=== PATIENT | female | born 1990 | race American Indian/Alaskan Native ===

== ENCOUNTER 2016-12-11 15:15 | Inpatient (IN) | payer MEDICAID ==
[2016-12-11] MEDS ORDERED: LACTATED RINGERS 1,000 ML ONE (16:34)
[2016-12-11] MEDS: LACTATED RINGERS 1,000 ML IV SCH ×2 (16:45→18:05)
[2016-12-11] MEDS ORDERED: BRETHINE IVP PRN (17:06)
[2016-12-11] MEDS ORDERED: BICITRA PO SCH (17:06)
[2016-12-11] MEDS ORDERED: ZOFRAN IV PRN ×2 (17:06→20:20)
[2016-12-11] MEDS ORDERED: MINERAL OIL PO PRN (17:06)
[2016-12-11] MEDS ORDERED: SUBLIMAZE IV PRN (17:06)
[2016-12-11 17:17] LABS: Hematocrit 35.9 % (30.3-42.9); Hemoglobin 11.5 gm/dl (10.1-14.3); Mean Corpuscular HGB Conc 32 % (30-34); Mean Corpuscular Hemoglobin 29 pg (28-32); Mean Corpuscular Volume 92 fl (79-97); Platelet Count 223 K/mm3 (140-440); Red Blood Count 3.92 M/mm3 (3.65-5.03); Red Cell Distribution Width 13.7 % (13.2-15.2); White Blood Count 10.2 K/mm3 (4.5-11.0)
[2016-12-11] MEDS ORDERED: BRETHINE SUB-Q PRN (17:18)
[2016-12-11] MEDS ORDERED: ePHEDrine SULFATE IV PRN ×2 (17:19→19:03)
[2016-12-11] MEDS ORDERED: LACTATED RINGERS 1,000 ML IV NR (18:00)
[2016-12-11] MEDS ORDERED: ANCEF/STERILE WATER 2 GM/20 ML 2 GM/20 ML SYRINGE IV NR (18:00)
[2016-12-11] MEDS ORDERED: PITOCin/NS 20 UNIT/1000ML DRIP 20,000 MILLIUNITS/1,000 ML BAG IV SCH (18:00)
[2016-12-11] MEDS ORDERED: REGLAN IV ONE (18:00)
[2016-12-11] MEDS ORDERED: PEPCID IV SCH (18:00)
[2016-12-11] MEDS ORDERED: ePHEDrine SULFATE ONE (18:21)
[2016-12-11] MEDS ORDERED: XYLOCAINE MPF 2% ONE (18:52)
--- NOTE | 2016-12-11 19:03 | Anesthesia Consultation ---
Anesthesia Consult and Med Hx Date of service: 12/11/16 - Airway Anesthetic Teeth Evaluation: Good ROM Head & Neck: Adequate Mental/Hyoid Distance: Adequate Mallampati Class: Class II Intubation Access Assessment: Probably Good - Pulmonary Exam CTA: Yes - Cardiac Exam Cardiac Exam: RRR - Pre-Operative Health Status ASA Pre-Surgery Classification: ASA2, Emergency Proposed Anesthetic Plan: Epidural, Spinal - Pre-Anesthesia Comment Pre-Anesthesia Comments: - Pulmonary Hx Asthma: No COPD: No Hx Pneumonia: No - Cardiovascular System Hx Hypertension: No - Central Nervous System Hx Seizures: No Hx Psychiatric Problems: No - Endocrine Hx Renal Disease: No Hx End Stage Renal Disease: No Hx Hypothyroidism: No Hx Hyperthyroidism: No - Hematic Hx Anemia: Yes Hx Sickle Cell Disease: No - Other Systems Hx Alcohol Use: Yes (red wine- 1 a month)
[2016-12-11] MEDS ORDERED: NARCAN 2 MG/2 ML IV PRN (19:07)
--- NOTE | 2016-12-11 19:11 | History and Physical Report ---
History of Present Illness Date of examination: 12/11/16 Date of admission: 12/11/16 17:01 Chief complaint: Labor History of present illness: Pt is a 26yo BF EDC 12/20/16 EGA 38 5/7 weeks presents to L&D complaining of RUC's q 3-4 mins. She received care at [facility] since 17 weeks and course complicated by previous C Section for Twins. She desires a . records are available and GBS is negative. Past History Past Medical History: no pertinent history Past Surgical History: section [employer]ANT History: abnormal PAP smear, chlamydia, herpes Family/Genetic History: diabetes, hypertension, cancer Social history: no significant social history, single - Obstetrical History Expected Date of Delivery: 12/20/16 Actual Gestation: 38 Week(s) 5 Day(s) : 5 Medications and Allergies Allergies Allergy/AdvReac Type Severity Reaction Status Date / Time No Known Allergies Allergy Verified 07/02/15 02:08 Home Medications Medication Instructions Recorded Confirmed Last Taken Type Ferrous Sulfate [Feosol 325 MG tab] 325 mg PO TID #90 tablet 07/02/15 Unknown Rx Ibuprofen [Motrin 800 MG tab] 800 mg PO Q8HR PRN #90 tablet 07/02/15 Unknown Rx oxyCODONE /ACETAMINOPHEN [Percocet 1 tab PO Q6HR PRN #30 tablet 07/02/15 Unknown Rx 5/325 mg] Active Meds: Active Medications Citric Acid/Sodium Citrate (Bicitra) 30 ml PO ONCE GINGER Stop: 12/12/16 17:05 Ephedrine Sulfate (Ephedrine Sulfate) 10 mg IV Q2M PRN PRN Reason: Hypotension Stop: 12/11/16 19:08 Famotidine (Pepcid) 20 mg IV ONCE GINGER Stop: 12/12/16 17:59 Fentanyl (Sublimaze) 100 mcg IV Q2H PRN PRN Reason: Labor Pain Last Admin: 12/11/16 17:40 Dose: 100 mcg Cefazolin Sodium (Ancef/Sterile Water 2 Gm/20 Ml) 2 gm in 20 mls @ 80 mls/hr IV PREOP NR PRN Reason: Protocol Stop: 12/12/16 17:59 Lactated Ringer's (Lactated Ringers) 1,000 mls @ 125 mls/hr IV DIRECT GINGER Last Admin: 12/11/16 18:05 Dose: 125 mls/hr Lactated Ringer's (Lactated Ringers) 1,000 mls @ 2,250 mls/hr IV PREOP NR Stop: 12/12/16 18:27 Oxytocin/Sodium Chloride (Pitocin/Ns 20 Unit/1000ml Drip) 20,000 milliunits in 1,000 mls @ 125 mls/hr IV DIRECT GINGER Fentanyl/Bupivacaine/Sodium Chlor (Fentanyl-Bupiv 2 Mcg/Ml-0.125%) 200 mcg in 100 mls @ 12 mls/hr EPIDURAL TITR GINGER PRN Reason: Protocol Mineral Oil (Mineral Oil) 30 ml PO QHS PRN PRN Reason: Constipation Naloxone HCl (Narcan 2 Mg/2 Ml) 0.2 mg IV Q5M PRN PRN Reason: Respiratory sedation Stop: 12/11/16 19:14 Ondansetron HCl (Zofran) 4 mg IV Q8H PRN PRN Reason: Nausea And Vomiting Review of Systems All systems: negative - Vital Signs Vital signs: Vital Signs Pulse Pulse Ox 75 99 12/11/16 15:54 12/11/16 15:54 Temp Pulse Resp BP Pulse Ox 98.1 F 81 20 120/63 92 12/11/16 17:22 12/11/16 19:05 12/11/16 17:22 12/11/16 19:05 12/11/16 18:54 - Physical Exam Breasts: Positive: deferred Cardiovascular: Regular rate Lungs: Positive: Clear to auscultation Abdomen: Positive: normal appearance, soft Genitourinary (Female): Positive: normal external genitalia Vagina: Positive: normal moisture Uterus: Positive: enlarged Extremities: Positive: normal - Obstetrical FHR: category 2 Uterine Contraction Monitor Mode: External Cervical Dilatation: 3 Cervical Effacement Percentage: 50 station: -2 Uterine Contraction Pattern: Regular Uterine Tone Measurement Phase: Contraction Uterine Contraction Intensity: Moderate Results Result Diagrams: 12/11/16 17:00 All other labs normal. Assessment and Plan - Patient Problems (1) 38 weeks gestation of Onset Date: 12/11/16 Current Visit: Yes Status: Acute Plan to address problem: A: IUP @ 38 5/7 weeks in labor Previous C Section Cat II tracing - improved P: Admit to L&D for TOLAC Expectant vaginal delivery (2) Previous delivery affecting Onset Date: 12/11/16 Current Visit: Yes Status: Acute
[2016-12-11] MEDS ORDERED: fentaNYL-BUPIV 2 MCG/ML-0.125% 200 MCG/100 ML BAG EPIDURAL SCH (20:00)
--- NOTE | 2016-12-11 20:19 | Procedure Note ---
OB Delivery Note - Delivery Date of Delivery: 12/11/16 Surgeon: AREN GARCIA Estimated blood loss: 100cc - Vaginal Delivery presentation: vertex Delivery position: OA Intrapartum events: mult.variable deceleratio Delivery induction: none Delivery augmentation: rupture of membranes Delivery monitor: external FHT, external uterine Route of delivery: Delivery placenta: spontaneous Delivery cord: nuchal cord, 3 umbilical vessels Episiotomy: none Delivery laceration: none Anesthesia: epidural - A at 1 minute: 8 at 5 minutes: 9 Gender: Male (2951gms)
[2016-12-11] MEDS ORDERED: BENADRYL PO PRN (20:20)
[2016-12-11] MEDS ORDERED: DERMOPLAST TP PRN (20:20)
[2016-12-11] MEDS ORDERED: NORCO 5/325 PO PRN (20:20)
[2016-12-11] MEDS ORDERED: DULCOLAX PR PRN (20:20)
[2016-12-11] MEDS ORDERED: MILK OF MAGNESIA PO PRN (20:20)
[2016-12-11] MEDS ORDERED: PHENERGAN PR PRN (20:20)
[2016-12-11] MEDS ORDERED: TYLENOL PO PRN (20:20)
[2016-12-11] MEDS ORDERED: TUCKS PAD TP PRN (20:20)
[2016-12-11] MEDS ORDERED: LANSINOH TP PRN (20:20)
[2016-12-11] MEDS ORDERED: PHENERGAN PO PRN (20:20)
[2016-12-11] MEDS ORDERED: SENOKOT S PO SCH (21:00)
[2016-12-11] MEDS ORDERED: PITOCin/NS 20 UNIT/1000ML DRIP 20 UNIT/1,000 ML BAG IV SCH (21:00)
[2016-12-11] MEDS ORDERED: SODIUM CHLORIDE FLUSH SYRINGE 10 ML IV PRN (21:00)
[2016-12-12 09:49] LABS: Hematocrit 31.8 % (30.3-42.9)
--- NOTE | 2016-12-12 09:53 | Discharge Summary ---
Providers - Providers Date of Admission: 12/11/16 17:01 Date of discharge: 12/13/16 Attending physician: AREN FARRELL MD Primary care physician: AREN FARRELL MD Hospitalization Reason for admission: active labor Delivery: Episiotomy: none Laceration: none Other procedures: none complications: none Discharge diagnosis: IUP at term delivered, [place] baby: male Condition at discharge: Good Disposition: DISCHARGED TO HOME OR SELFCARE Plan - Provider Discharge Summary Activity: routine, no sex for 6 weeks, no strenuous exercise Diet: routine Instructions: routine Additional instructions: [] Smoking cessation referral if applicable(refer to patient education folder for contact #) [] Refer to [facility] Booklet Call your doctor immediately for: * Fever > 100.5 * Heavy vaginal bleeding ( >1 pad per hour) * Severe persistent headache * Shortness of breath * Reddened, hot, painful area to leg or breast * Drainage or odor from incision. * Keep incision clean and dry at all times and follow doctor's instructions regarding bathing/showering - Follow up plan Follow up: [facility] [Provider Group] - 6 Weeks
--- NOTE | 2016-12-12 09:53 | Progress Note ---
Assessment and Plan A: PPD #1 - stable P: Plan discharge in am Subjective - Subjective Date of service: 12/12/16 Principal diagnosis: Patient reports: appetite normal [place]: doing well Objective - Vital Signs Latest vital signs: Vital Signs Temp Pulse Pulse Resp BP BP Pulse Ox 12/12/16 07:18 98.8 F 71 18 109/72 12/12/16 04:40 98.6 F 82 18 117/67 12/12/16 00:30 99.3 F 70 18 137/77 12/11/16 22:30 100.4 F H 70 20 138/72 12/11/16 21:32 72 119/73 12/11/16 20:57 75 147/85 12/11/16 20:42 76 128/80 12/11/16 20:30 99.4 F 18 12/11/16 20:27 83 142/82 12/11/16 20:10 96 H 100 12/11/16 19:43 77 121/67 12/11/16 19:22 97.9 F 75 20 12/11/16 19:11 75 115/62 12/11/16 19:09 78 114/64 12/11/16 19:07 78 112/60 12/11/16 19:05 81 120/63 12/11/16 19:01 79 188/75 12/11/16 18:58 78 153/66 12/11/16 18:54 89 92 12/11/16 18:52 74 133/62 12/11/16 18:51 75 100 12/11/16 18:46 62 61 L 12/11/16 18:45 81 127/57 84 12/11/16 18:43 78 134/63 12/11/16 18:41 80 132/62 100 12/11/16 18:39 90 131/60 12/11/16 18:37 82 132/70 12/11/16 18:36 86 130/80 100 12/11/16 18:34 82 137/80 12/11/16 18:31 87 99 12/11/16 17:29 80 L 12/11/16 17:28 77 100 12/11/16 17:23 92 H 100 12/11/16 17:22 98.1 F 20 12/11/16 17:12 76 136/71 12/11/16 16:57 75 92 12/11/16 16:56 79 94 12/11/16 16:55 86 96 12/11/16 16:54 74 99 12/11/16 16:52 72 84 12/11/16 16:51 58 L 82 L 12/11/16 16:49 182 H 82 L 12/11/16 16:48 55 L 99 12/11/16 16:47 174 H 82 L 12/11/16 16:46 166 H 82 L 12/11/16 16:45 441 H 82 L 12/11/16 16:44 76 92 12/11/16 16:43 70 89 12/11/16 16:42 60 87 12/11/16 16:40 49 L 81 L 12/11/16 16:39 84 92 12/11/16 16:38 79 97 12/11/16 16:37 72 99 12/11/16 16:36 74 99 12/11/16 16:35 44 L 69 L 12/11/16 16:34 69 99 12/11/16 16:33 70 99 12/11/16 16:32 69 95 12/11/16 16:31 78 99 12/11/16 16:29 75 99 12/11/16 16:25 220 H 64 L 12/11/16 16:24 45 L 82 L 12/11/16 16:22 159 H 82 L 12/11/16 16:21 79 82 L 12/11/16 16:20 76 82 L 12/11/16 16:18 159 H 96 12/11/16 16:17 166 H 82 L 12/11/16 16:16 107 H 82 L 12/11/16 16:15 178 H 82 L 12/11/16 16:14 156 H 82 L 12/11/16 16:13 136 H 82 L 12/11/16 16:12 52 L 82 L 12/11/16 16:11 202 H 45 L 12/11/16 16:10 81 98 12/11/16 16:05 84 99 12/11/16 16:00 77 99 12/11/16 15:56 71 127/68 12/11/16 15:54 75 99 Intake and Output 12/11/16 12/12/16 12/12/16 22:59 06:59 14:59 Intake Total 1000 360 Output Total 1100 Balance 1000 -740 Intake: IV 1000 Lactated Ringers 1,000 ml 1000 @ 125 mls/hr IV DIRECT GINGER Rx#:[id number] Intake, Free Water 360 Output: Urine 1100 Void 1100 Other: Total, Output Amount 800 Weight 135 lb Estimated Blood Loss 100 - Exam Breasts: Present: deferred Cardiovascular: Present: Regular rate Lungs: Present: Clear to auscultation Abdomen: Present: normal appearance Vulva: both: normal Uterus: Present: fundal height below umbilicus Deep Tendon Reflex Grade: Normal +2 - Labs Labs: Abnormal lab results 12/12/16 Range/Units 09:01 Hgb 10.0 L (10.1-14.3) gm/dl
[2016-12-12] MEDS: FEOSOL PO SCH ×2 (10:20→22:45)
[2016-12-12] MEDS: MOTRIN PO SCH ×2 (10:20→22:45)
[2016-12-12] MEDS: PRENATAL VITAMIN PO SCH (10:20)
[2016-12-12] MEDS: COLACE PO SCH ×2 (10:20→22:40)
[2016-12-12] MEDS ORDERED: M-M-R II VACCINE SUB-Q ONE (20:20)
[2016-12-13] MEDS ORDERED: BOOSTRIX IM ONE (06:00)
[2016-12-13] MEDS: MOTRIN PO SCH ×2 (06:00→12:15)
[2016-12-13] MEDS: FEOSOL PO SCH (12:15)
[2016-12-13] MEDS: COLACE PO SCH (12:15)
[2016-12-13] MEDS: PRENATAL VITAMIN PO SCH (13:25)
[2016-12-13 15:46] VITALS: BP 92/54
== END 2016-12-13 15:30 | disposition home or self-care (01) | DRG 775 ==
LOC: TRG 15:15 → LD 17:01 → OB 12-12 02:36
PROVIDERS: ADMIT Obstetrics & Gynecology; ATTEND Obstetrics & Gynecology
PROC: 10E0XZZ Delivery of Products of Conception, External Approach (ICD-10-PCS; principal; 2016-12-11)
PROC: 00HU33Z Insertion of Infusion Device into Spinal Canal, Percutaneous Approach (ICD-10-PCS; 2016-12-11)
PROC: 3E0R3CZ (ICD-10-PCS; 2016-12-11)
PROC: 10907ZC Drainage of Amniotic Fluid, Therapeutic from Products of Conception, Via Natural or Artificial Opening (ICD-10-PCS; 2016-12-11)
DX: O76 Abnormality in fetal heart rate and rhythm complicating labor and delivery (principal); O34.219 Maternal care for unspecified type scar from previous cesarean delivery; O69.81X0 Labor and delivery complicated by cord around neck, without compression, not applicable or unspecified; Z3A.38 38 weeks gestation of pregnancy; Z37.0 Single live birth; Z83.3 Family history of diabetes mellitus; Z82.49 Family history of ischemic heart disease and other diseases of the circulatory system; Z80.9 Family history of malignant neoplasm, unspecified; O98.519 Other viral diseases complicating pregnancy, unspecified trimester; B00.9 Herpesviral infection, unspecified; O98.319 Other infections with a predominantly sexual mode of transmission complicating pregnancy, unspecified trimester; A56.8 Sexually transmitted chlamydial infection of other sites
CPT/HCPCS: 36415; 85014; 85018; 85027; 86850; 86900; 86901; J2590; J3010; J7120

== ENCOUNTER 2019-03-04 21:02 | Emergency (ER) | payer MEDICAID ==
--- NOTE | 2019-03-04 22:42 | Emergency Department Report ---
Blank Doc - Documentation Documentation: 28 y/o female comes in for body numbness times 2 weeks.
[2019-03-05 02:18] VITALS: BP 115/85
[2019-03-05 05:34] LABS: Bilirubin,Urine NEG (Negative); Blood,Urine NEG (Negative); Calcium Oxalate Crystals,Urine 3+; Color,Urine Yellow (Yellow); Mucus,Urine 3+ /HPF; Urobilinogen,Urine < 2.0 mg/dL (<2.0)
[2019-03-05 05:35] LABS: HCG Qualitative,Urine Negative (Negative)
[2019-03-05] MEDS ORDERED: BENADRYL PO ONE (06:01)
[2019-03-05] MEDS ORDERED: PEPCID PO ONE (06:01)
[2019-03-05] MEDS ORDERED: DELTASONE PO ONE (06:01)
--- NOTE | 2019-03-05 06:07 | Emergency Department Report ---
ED Allergic Reaction HPI - General Chief complaint: Allergic Reaction Stated complaint: BODY NUMBNESS Time Seen by Provider: 03/05/19 04:20 Source: patient Mode of arrival: Ambulatory Limitations: No Limitations - History of Present Illness Initial Comments: Patient is a A0 28-year-old, female with no past medical history presents to the ED with a complaint of acute onset profuse and easy mildly erythematous rash diffusely over the last 4 days. Patient also complaints of persistent bilateral feet swelling for the last 2 days. Patient states that she has been in penitent[facility] for over one month and just got out of penitentiary about 2 days ago. Patient states that this rash is becoming penitentiary where she suspects she may have been in contact with something that she is allergic to which she isn't aware of. Patient denies dyspnea, swollen throat, swollen lips and tongue, discharge, dysphonia, nausea, vomiting, fever, chills, dizziness, abdominal pain or diarrhea. MD Complaint: allergic reaction, hives, other (itching) -: Sudden, days(s) (2) Exposure: unknown Symptoms: rash, itching. denies: lip swelling, difficulty swallowing, difficulty breathing, orolingual swelling, hoarseness, syncopy, dizziness, nausea, vomiting, abdominal pain Severity: mild Treatment Prior to Arrival: none Previous Allergy History: none - Related Data Previous Rx's Medication Instructions Recorded Last Taken Type Ferrous Sulfate [Feosol 325 MG tab] 325 mg PO TID #90 tablet 07/02/15 Unknown Rx Ibuprofen [Motrin 800 MG tab] 800 mg PO Q8HR PRN #90 tablet 07/02/15 Unknown Rx oxyCODONE /ACETAMINOPHEN [Percocet 1 tab PO Q6HR PRN #30 tablet 07/02/15 Unknown Rx 5/325 mg] Ranitidine HCl [Zantac] 150 mg PO Q12H #20 tablet 03/05/19 Unknown Rx diphenhydrAMINE [Benadryl CAP] 25 mg PO Q6H PRN #24 capsule 03/05/19 Unknown Rx methylPREDNISolone [Medrol Dose 4 mg PO DAILY #21 pack 03/05/19 Unknown Rx León] Allergies Allergy/AdvReac Type Severity Reaction Status Date / Time No Known Allergies Allergy Verified 07/02/15 02:08 ED Review of Systems ROS: Stated complaint: BODY NUMBNESS Other details as noted in HPI Comment: All other systems reviewed and negative Constitutional: no symptoms reported, see HPI. denies: chills, diaphoresis Eyes: as per HPI. denies: eye pain, eye discharge, vision change ENT: as per HPI. denies: ear pain, throat pain, dental pain, epistaxis Respiratory: no symptoms reported, see HPI. denies: cough, orthopnea, shortness of breath, SOB with exertion, SOB at rest Cardiovascular: as per HPI. denies: chest pain, palpitations, edema Endocrine: no symptoms reported, see HPI. denies: excessive sweating, flushing, intolerance to heat, increased hunger, increased urine, unexplained weight gain Gastrointestinal: as per HPI. denies: abdominal pain, nausea, vomiting, diarrhea, constipation, hematemesis Genitourinary: as per HPI. denies: urgency, dysuria, frequency, hematuria Musculoskeletal: as per HPI. denies: back pain, joint swelling, arthralgia Skin: rash, pruritus, other (diffuse itchy erythematous urticarial rash). denies: as per HPI, lesions, change in color, change in hair/nails Neurological: as per HPI. denies: headache, numbness, paresthesias, abnormal gait, vertigo Psychiatric: as per HPI Hematological/Lymphatic: as per HPI ED Past Medical Hx - Past Medical History Previous Medical History?: Yes Hx Hypertension: No Hx Congestive Heart Failure: No Hx Diabetes: No Hx Deep Vein Thrombosis: No Hx Renal Disease: No Hx Sickle Cell Disease: No Hx Seizures: No Hx Asthma: No Hx COPD: No Hx HIV: No - Surgical History Past Surgical History?: Yes Additional Surgical History: c/s - Social History Smoking Status: Current Some Day Smoker Substance Use Type: None - Medications Home Medications: Home Medications Medication Instructions Recorded Confirmed Last Taken Type Ferrous Sulfate [Feosol 325 MG tab] 325 mg PO TID #90 tablet 07/02/15 Unknown Rx Ibuprofen [Motrin 800 MG tab] 800 mg PO Q8HR PRN #90 tablet 07/02/15 Unknown Rx oxyCODONE /ACETAMINOPHEN [Percocet 1 tab PO Q6HR PRN #30 tablet 07/02/15 Unknown Rx 5/325 mg] Ranitidine HCl [Zantac] 150 mg PO Q12H #20 tablet 03/05/19 Unknown Rx diphenhydrAMINE [Benadryl CAP] 25 mg PO Q6H PRN #24 capsule 03/05/19 Unknown Rx methylPREDNISolone [Medrol Dose 4 mg PO DAILY #21 pack 03/05/19 Unknown Rx León] ED Physical Exam - General Limitations: No Limitations General appearance: alert, in no apparent distress - Head Head exam: Present: atraumatic, normocephalic, normal inspection - Eye Eye exam: Present: normal appearance, PERRL, EOMI. Absent: scleral icterus, conjunctival injection, periorbital swelling, periorbital tenderness Pupils: Present: normal accommodation - ENT ENT exam: Present: normal exam, normal orophraynx, mucous membranes moist, TM's normal bilaterally, normal external ear exam - Neck Neck exam: Present: normal inspection, full ROM. Absent: tenderness, meningismus - Respiratory Respiratory exam: Present: normal lung sounds bilaterally. Absent: respiratory distress, wheezes, rales, rhonchi, chest wall tenderness, accessory muscle use, prolonged expiratory - Cardiovascular Cardiovascular Exam: Present: regular rate, normal rhythm, normal heart sounds - GI/Abdominal GI/Abdominal exam: Present: soft, normal bowel sounds. Absent: tenderness, guarding, hyperactive bowel sounds, hypoactive bowel sounds - Rectal Rectal exam: Present: deferred - Back Exam Back exam: Present: normal inspection, full ROM. Absent: tenderness, CVA tenderness (L), muscle spasm, paraspinal tenderness - Neurological Exam Neurological exam: Present: alert, oriented X3, CN II-XII intact, normal gait, reflexes normal - Psychiatric Psychiatric exam: Present: normal affect - Skin Skin exam: Present: warm, dry, intact, normal color ED Course Vital Signs 03/04/19 03/05/19 21:48 02:08 Temperature 98.6 F 97.9 F Pulse Rate 78 80 Respiratory 18 16 Rate Blood Pressure 120/70 Blood Pressure 115/85 [Left] O2 Sat by Pulse 98 100 Oximetry - Consultations Consultation #1: 03/05/19 06:13 Patient is alert and oriented 3 and is not in distress with normal vital signs. Urinalysis is unremarkable with a negative hCG test. Patient was discharged with acute allergic reaction in the ED and discharged home on medications, advised follow-up with her primary care physician in 5-7 days for reevaluation. Patient is advised to return to the ED immediately if symptoms get worse. ED Medical Decision Making - Medical Decision Making Patient is alert and oriented 3 and is not in distress with normal vital signs. Urinalysis is unremarkable with a negative hCG test. Patient was discharged with acute allergic reaction in the ED and discharged home on medications, advised follow-up with her primary care physician in 5-7 days for reevaluation. Patient is advised to return to the ED immediately if symptoms get worse. - Differential Diagnosis acute allergic reaction, Acute Urticaria, irritant dermatitis Critical care attestation.: If time is entered above; I have spent that time in minutes in the direct care of this critically ill patient, excluding procedure time. ED Disposition Clinical Impression: Acute urticaria, Itching with irritation Acute allergic reaction Qualifiers: Encounter type: initial encounter Qualified Code(s): T78.40XA - Allergy, unspecified, initial encounter Disposition: TO HOME OR SELFCARE Is pt being admited?: No Does the pt Need Aspirin: No Condition: Stable Instructions: Urticaria (ED), Allergies (ED), Itchy Skin (ED) Additional Instructions: Take medications with food, drink plenty of fluids and follow up. Return primary care physician in 7-10 days for reevaluation. Return to the ED immediately if symptoms get worse. Prescriptions: diphenhydrAMINE [Benadryl CAP] 25 mg PO Q6H PRN #24 capsule PRN Reason: Itching methylPREDNISolone [Medrol Dose León] 4 mg PO DAILY #21 pack Ranitidine HCl [Zantac] 150 mg PO Q12H #20 tablet Referrals: ABHISHEK RODGERS MD [Primary Care Provider] - 3-5 Days Time of Disposition: 06:06 Print Language: HUNGARIAN
== END 2019-03-05 06:27 | disposition home or self-care (01) ==
LOC: ED 21:02
DX: T78.40XA Allergy, unspecified, initial encounter (principal); L50.9 Urticaria, unspecified; F17.200 Nicotine dependence, unspecified, uncomplicated; Y92.89 Other specified places as the place of occurrence of the external cause
CPT/HCPCS: 81001; 81025; 99283; J7512

== ENCOUNTER 2019-08-28 18:02 | Emergency (ER) | payer MEDICAID ==
--- NOTE | 2019-08-28 19:30 | Event Note ---
ED Screening Note Date of service: 08/29/19 Time: 19:27 ED Screening Note: 29 y o female presents with redness and swelling to both feet x 2 days PMH: none No current meds 2+ pedal pulses 2+ pitting edema This initial assessment/diagnostic orders/clinical plan/treatment(s) is/are subject to change based on patients health status, clinical progression and re- assessment by fellow clinical providers in the ED. Further treatment and workup at subsequent clinical providers discretion. Patient/guardian urged not to elope from the ED as their condition may be serious if not clinically assessed and managed. Initial orders include: acc eval
[2019-08-29] MEDS ORDERED: IBUPROFEN 600 MG TAB PO ONE (02:19)
[2019-08-29] MEDS ORDERED: ACETAMINOPHEN 500 MG TAB PO ONE (02:19)
--- NOTE | 2019-08-29 03:20 | XRay Report ---
BILATERAL ANKLE 4 VIEW(S) BILATERAL FEET 6 VIEWS INDICATION / CLINICAL INFORMATION: traumatic injury COMPARISON: None available. FINDINGS: BONES / JOINT(S): No fracture or subluxation of either ankle. No fracture or subluxation of either fo ot. No significant arthritis. SOFT TISSUES: Mild bimalleolar soft tissue swelling of the left ankle with moderate soft tissue swell ing on the dorsum of the left foot. Mild bimalleolar soft tissue swelling of the right ankle with mil d soft tissue swelling on the dorsum of the right foot. ADDITIONAL FINDINGS: None. Signer Name: Odalys Merrill MD Signed: 08/29/2019 3:15 AM Workstation Name: [id number]
--- NOTE | 2019-08-29 03:42 | Emergency Department Report ---
ED Lower Extremity HPI - General Chief Complaint: Extremity Problem,Nontraumatic Stated Complaint: FEET PAIN Source: patient Mode of arrival: Ambulatory Limitations: No Limitations - History of Present Illness Initial Comments: Patient is a 29-year-old [place] female presents to the ED with carbon of acute onset persistent bilateral uncontrolled pain and swelling after I had dressed and has feet bilaterally about 3 days ago. Patient states that the pain and swelling worsened in the last 2 days especially in the last 12 or so. Patient states that the pain is worse with ambulation or palpation of her feet or ankles. Patient denies fall, dizziness, chest pain, shortness of breath, low back pain, heavy lifting, nausea, vomiting, fever, chills, numbness and tingling or weakness of her lower extremities bilaterally. MD Complaint: ankle injury (Bilateral), foot injury (bilateral), other (Traumatic injury to bilateral foot and ankle) -: Sudden, days(s) (3) Injury: Ankle: Left, Right, Foot: Right, Left Type of Injury: blunt (dresser fell on her feet and ankles bilaterally) Place: home Severity: moderate Severity scale (0 -10): 6 Improves With: nothing Worsens With: weight bearing, movement, palpation Context: direct blow (dresser chest fell on her feet and ankle) Associated Symptoms: swelling, able to partially bear weight. denies: numbness, tingling, unable to bear weight, ambulatory - Related Data Previous Rx's Medication Instructions Recorded Last Taken Type Amoxicillin [Trimox CAP] 500 mg PO BID #20 capsule 03/09/19 Unknown Rx Silver Sulfadiazine [Ssd] 400 gm TP BID #1 each 03/09/19 Unknown Rx Cyclobenzaprine [Flexeril] 10 mg PO Q8H PRN #15 tablet 08/29/19 Unknown Rx Ibuprofen [Motrin] 600 mg PO Q8H PRN #20 tablet 08/29/19 Unknown Rx predniSONE [Deltasone] 40 mg PO QDAY #10 tab 08/29/19 Unknown Rx Allergies Allergy/AdvReac Type Severity Reaction Status Date / Time No Known Allergies Allergy Verified 08/28/19 18:03 ED Review of Systems ROS: Stated complaint: FEET PAIN Other details as noted in HPI Constitutional: denies: chills, fever Eyes: denies: eye pain, eye discharge, vision change ENT: denies: ear pain, throat pain Respiratory: denies: cough, shortness of breath, wheezing Cardiovascular: denies: chest pain, palpitations Endocrine: no symptoms reported Gastrointestinal: denies: abdominal pain, nausea, diarrhea Genitourinary: denies: urgency, dysuria, discharge Musculoskeletal: joint swelling (bilateral feet and ankles), arthralgia (bilateral feet and ankles), myalgia. denies: back pain Skin: denies: rash, lesions Neurological: denies: headache, weakness, paresthesias Psychiatric: denies: anxiety, depression Hematological/Lymphatic: denies: easy bleeding, easy bruising ED Past Medical Hx - Past Medical History Previous Medical History?: No Hx Hypertension: No Hx Congestive Heart Failure: No Hx Diabetes: No Hx Deep Vein Thrombosis: No Hx Renal Disease: No Hx Sickle Cell Disease: No Hx Seizures: No Hx Asthma: No Hx COPD: No Hx HIV: No - Surgical History Past Surgical History?: Yes Additional Surgical History: c/s - Social History Smoking Status: Never Smoker Substance Use Type: None - Medications Home Medications: Home Medications Medication Instructions Recorded Confirmed Last Taken Type Amoxicillin [Trimox CAP] 500 mg PO BID #20 capsule 03/09/19 Unknown Rx Silver Sulfadiazine [Ssd] 400 gm TP BID #1 each 03/09/19 Unknown Rx Cyclobenzaprine [Flexeril] 10 mg PO Q8H PRN #15 tablet 08/29/19 Unknown Rx Ibuprofen [Motrin] 600 mg PO Q8H PRN #20 tablet 08/29/19 Unknown Rx predniSONE [Deltasone] 40 mg PO QDAY #10 tab 08/29/19 Unknown Rx ED Physical Exam - General Limitations: No Limitations General appearance: alert, in no apparent distress - Head Head exam: Present: atraumatic, normocephalic, normal inspection - Eye Eye exam: Present: normal appearance, PERRL, EOMI Pupils: Present: normal accommodation - ENT ENT exam: Present: normal exam, normal orophraynx, mucous membranes moist, TM's normal bilaterally, normal external ear exam - Neck Neck exam: Present: normal inspection, full ROM - Respiratory Respiratory exam: Present: normal lung sounds bilaterally. Absent: respiratory distress, wheezes, rales, stridor, chest wall tenderness, accessory muscle use, prolonged expiratory - Cardiovascular Cardiovascular Exam: Present: regular rate, normal rhythm, normal heart sounds. Absent: systolic murmur, diastolic murmur, rubs, gallop - GI/Abdominal GI/Abdominal exam: Present: soft, normal bowel sounds. Absent: tenderness, guarding, rebound, hyperactive bowel sounds, hypoactive bowel sounds - Extremities Exam Extremities exam: Present: normal inspection, full ROM, tenderness (Bilateral feet and ankle tenderness with swelling), normal capillary refill, joint swelling (bilateral feet and ankle swelling). Absent: calf tenderness - Back Exam Back exam: Present: normal inspection, full ROM. Absent: CVA tenderness (R), CVA tenderness (L), muscle spasm, paraspinal tenderness, vertebral tenderness - Neurological Exam Neurological exam: Present: alert, oriented X3, CN II-XII intact, normal gait, reflexes normal - Psychiatric Psychiatric exam: Present: normal affect, normal mood - Skin Skin exam: Present: warm, dry, intact, normal color. Absent: rash ED Course Vital Signs 08/28/19 08/28/19 08/29/19 19:26 23:39 02:47 Temperature 98.8 F 98.9 F Pulse Rate 93 H 88 Respiratory 18 18 18 Rate Blood Pressure 128/63 129/75 O2 Sat by Pulse 100 99 Oximetry - Reevaluation(s) Reevaluation #1: 08/29/19 03:46 This is a 29-year-old female who presented to the ED with complaint of bilateral foot and ankle swelling after a dresser fell on her feet and ankles. He is ago. Patient is alert and oriented 3, and is not in distress in the ED. Patient was treated for pain and bilateral feet and ankle x-rays were obtained. Bilateral feet and ankle x-rays showed no acute fractures or subluxations. There is however mild bimalleolar soft tissue swelling of the left ankle with moderate soft tissue swelling on the dorsum of the left foot. Mild bimalleolar soft tissue swelling of the right ankle with mild soft tissue swelling on the dorsum of the right foot. The ankles and feet were splinted with Porfirio wrap bilaterally, and the patient discharged home on pain medications and muscle relaxants. Patient was also advised to elevate her feet and ankles above the heart to have drained the fluid back to the heart. Patient was also advised to follow up with her primary care physician in 7-10 days for reevaluation or return to the ED immediately if symptoms get worse. ED Lower Extremity MDM - Radiology Data Radiology results: report reviewed, image reviewed Findings [address] [address] XRay Report Signed Patient: LA RICHARD MR#: [id number] : 1990 Acct:[id number] Age/Sex: 29 / F ADM Date: 08/28/19 Loc: ED Attending Dr: Ordering Physician: LAVERNE KIM Date of Service: 08/29/19 Procedure(s): XR foot BILAT 3+V Accession Number(s): [id number] cc: LAVERNE KIM Fluoro Time In Minutes: BILATERAL ANKLE 4 VIEW(S) BILATERAL FEET 6 VIEWS INDICATION / CLINICAL INFORMATION: traumatic injury COMPARISON: None available. FINDINGS: BONES / JOINT(S): No fracture or subluxation of either ankle. No fracture or subluxation of either foot. No significant arthritis. SOFT TISSUES: Mild bimalleolar soft tissue swelling of the left ankle with moderate soft tissue swelling on the dorsum of the left foot. Mild bimalleolar soft tissue swelling of the right ankle w ith mild soft tissue swelling on the dorsum of the right foot. ADDITIONAL FINDINGS: None. Signer Name: Odalys Merrill MD Signed: 08/29/2019 3:15 AM Workstation Name: [id number] Transcribed By: DT Dictated By: Lavell Merrill MD Electronically Authenticated By: Lavell Merrill MD Signed Date/Time: 08/29/19 0315 D Findings [address] [address] XRay Report Signed Patient: LA RICHARD MR#: [id number] : 1990 Acct:[id number] Age/Sex: 29 / F ADM Date: 08/28/19 Loc: ED Attending Dr: Ordering Physician: LAVERNE KIM Date of Service: 08/29/19 Procedure(s): XR ankle BILAT 2V Accession Number(s): [id number] cc: LAVERNE KIM Fluoro Time In Minutes: BILATERAL ANKLE 4 VIEW(S) BILATERAL FEET 6 VIEWS INDICATION / CLINICAL INFORMATION: traumatic injury COMPARISON: None available. FINDINGS: BONES / JOINT(S): No fracture or subluxation of either ankle. No fracture or subluxation of either foot. No significant arthritis. SOFT TISSUES: Mild bimalleolar soft tissue swelling of the left ankle with moderate soft tissue swelling on the dorsum of the left foot. Mild bimalleolar soft tissue swelling of the right ankle w ith mild soft tissue swelling on the dorsum of the right foot. ADDITIONAL FINDINGS: None. Signer Name: Odalys Merrill MD Signed: 08/29/2019 3:15 AM Workstation Name: [id number] Transcribed By: DT Dictated By: Lavell Merrill MD Electronically Authenticated By: Lavell Merrill MD Signed Date/Time: 08/29/19314 DD/ 3 TD/TT: - Medical Decision Making This is a 29-year-old female who presented to the ED with complaint of bilateral foot and ankle swelling after a dresser fell on her feet and ankles. He is ago. Patient is alert and oriented 3, and is not in distress in the ED. Patient was treated for pain and bilateral feet and ankle x-rays were obtained. Bilateral feet and ankle x-rays showed no acute fractures or subluxations. There is however mild bimalleolar soft tissue swelling of the left ankle with moderate soft tissue swelling on the dorsum of the left foot. Mild bimalleolar soft tissue swelling of the right ankle with mild soft tissue swelling on the dorsum of the right foot. The ankles and feet were splinted with Porfirio wrap bilaterally, and the patient discharged home on pain medications and muscle relaxants. Patient was also advised to elevate her feet and ankles above the heart to have drained the fluid back to the heart. Patient was also advised to follow up with her primary care physician in 7-10 days for reevaluation or return to the ED immediately if symptoms get worse. - Differential Diagnosis Ankle fractures; Bilateral foot fractures; Muscle strains; Contusion Critical care attestation.: If time is entered above; I have spent that time in minutes in the direct care of this critically ill patient, excluding procedure time. ED Disposition Clinical Impression: Bilateral swelling of feet and ankles, Bilateral foot pain Muscle strain of ankle Qualifiers: Encounter type: initial encounter Laterality: unspecified laterality Qualified Code(s): S96.919A - Strain of unspecified muscle and tendon at ankle and foot level, unspecified foot, initial encounter Disposition: TO HOME OR SELFCARE Is pt being admited?: No Does the pt Need Aspirin: No Condition: Stable Instructions: Muscle Strain (ED), Arthralgia (ED), Ankle Sprain (ED), Foot Sprain (ED) Additional Instructions: Take medication with food, elevate your feet above the heart when at rest, drink plenty of fluids and follow-up with your primary care physician in 5-7 days for reevaluation. Return to the ED immediately if symptoms get worse. Prescriptions: predniSONE [Deltasone] 40 mg PO QDAY #10 tab Cyclobenzaprine [Flexeril] 10 mg PO Q8H PRN #15 tablet PRN Reason: Muscle Spasm Ibuprofen [Motrin] 600 mg PO Q8H PRN #20 tablet PRN Reason: Pain Referrals: PRIMARY CARE, [Primary Care Provider] - 3-5 Days Forms: Work/School Release Form(ED) Time of Disposition: 03:40 Print Language: KINYARWANDA
[2019-08-29 04:17] VITALS: BP 116/81
== END 2019-08-29 04:16 | disposition home or self-care (01) ==
LOC: ED 18:02
DX: S96.911A Strain of unspecified muscle and tendon at ankle and foot level, right foot, initial encounter (principal); S96.912A Strain of unspecified muscle and tendon at ankle and foot level, left foot, initial encounter; Z79.899 Other long term (current) drug therapy; Z79.1 Long term (current) use of non-steroidal anti-inflammatories (NSAID); W04.XXXA Fall while being carried or supported by other persons, initial encounter; Y93.89 Activity, other specified; Y92.098 Other place in other non-institutional residence as the place of occurrence of the external cause; Y99.8 Other external cause status

== ENCOUNTER 2021-01-27 16:27 | Emergency (ER) | payer SELFPAY ==
[2021-01-27 16:38] VITALS: BP 116/92
[2021-01-27] MEDS ORDERED: ONDANSETRON 4 MG ODT TAB PO ONE (16:56)
--- NOTE | 2021-01-27 17:02 | Event Note ---
ED Screening Note Date of service: 01/27/21 Time: 17:01 ED Screening Note: Patient c/o 2 week hx of nausea and mild intermittent vomiting. She denies any UTI symptoms, diarrhea, abd pain, URI symptoms or cough. She states her L[facility] was 2 weeks ago. This initial assessment/diagnostic orders/clinical plan/treatment(s) is/are subject to change based on patients health status, clinical progression and re- assessment by fellow clinical providers in the ED. Further treatment and workup at subsequent clinical providers discretion. Patient/guardian urged not to elope from the ED as their condition may be serious if not clinically assessed and managed. Initial orders include: UA/zofran
[2021-01-27 21:39] LABS: Basophils % (Auto) 0.6 % (0.0-1.8); Eosinophils # (Auto) 0.1 K/mm3 (0.0-0.4); Eosinophils % (Auto) 1.3 % (0.0-4.3); Hematocrit 43.1 % (30.3-42.9); Hemoglobin 14.5 gm/dl (10.1-14.3); Lymphocytes # (Auto) 1.7 K/mm3 (1.2-5.4); Lymphocytes % (Auto) 28.3 % (13.4-35.0); Mean Corpuscular HGB Conc 34 % (30-34); Mean Corpuscular Volume 93 fl (79-97); Monocytes # (Auto) 0.5 K/mm3 (0.0-0.8); Monocytes % (Auto) 8.4 % (0.0-7.3); Platelet Count 348 K/mm3 (140-440); Red Blood Count 4.63 M/mm3 (3.65-5.03); Red Cell Distribution Width 13.2 % (13.2-15.2)
[2021-01-27 22:01] LABS: Alanine Aminotransferase 10 units/L (7-56); Albumin 4.8 g/dL (3.9-5); BUN/Creatinine Ratio 25; Blood Urea Nitrogen 25 mg/dL (7-17); Calcium 10.6 mg/dL (8.4-10.2); Hemolysis Index 30
--- NOTE | 2021-01-27 23:34 | Emergency Department Report ---
ED General Adult HPI - General Chief complaint: Nausea/Vomiting/Diarrhea Stated complaint: NAUSEA/VOMITING/MED REFILL PUI?: No Source: patient Mode of arrival: Ambulatory Limitations: No Limitations - History of Present Illness Initial comments: Patient c/o 2 week hx of nausea and mild intermittent vomiting. She denies any UTI symptoms, diarrhea, abd pain, URI symptoms or cough. She states her L[facility] was 2 weeks ago. Last vomited this morning. Able to drink water. Followed by [facility]. Onset/Timin -: week(s) Severity scale (0 -10): 0 Treatments Prior to Arrival: none - Related Data Previous Rx's Medication Instructions Recorded Last Taken Type Amoxicillin [Trimox CAP] 500 mg PO BID #20 capsule 03/09/19 Unknown Rx Silver Sulfadiazine [Ssd] 400 gm TP BID #1 each 03/09/19 Unknown Rx Cyclobenzaprine [Flexeril] 10 mg PO Q8H PRN #15 tablet 08/29/19 Unknown Rx Ibuprofen [Motrin] 600 mg PO Q8H PRN #20 tablet 08/29/19 Unknown Rx predniSONE [Deltasone] 40 mg PO QDAY #10 tab 08/29/19 Unknown Rx Erythromycin [Erythromycin Ophth 1 applic OS QID 10 Days #1 tube 01/28/21 Unknown Rx Oint] Ondansetron [Zofran Odt] 4 mg PO Q8HR #8 tab.rapdis 01/28/21 Unknown Rx Allergies Allergy/AdvReac Type Severity Reaction Status Date / Time No Known Allergies Allergy Verified 01/27/21 16:30 ED Review of Systems ROS: Stated complaint: NAUSEA/VOMITING/MED REFILL Other details as noted in HPI Comment: All other systems reviewed and negative ED Past Medical Hx - Past Medical History Hx Hypertension: No Hx Congestive Heart Failure: No Hx Diabetes: No Hx Deep Vein Thrombosis: No Hx Renal Disease: No Hx Sickle Cell Disease: No Hx Seizures: No Hx Psychiatric Treatment: Yes (BIPOLAR/ SCHIZOPHERNIC) Hx Asthma: No Hx COPD: No Hx HIV: No - Surgical History Additional Surgical History: c/s - Social History Smoking Status: Never Smoker Substance Use Type: None - Medications Home Medications: Home Medications Medication Instructions Recorded Confirmed Last Taken Type Amoxicillin [Trimox CAP] 500 mg PO BID #20 capsule 03/09/19 Unknown Rx Silver Sulfadiazine [Ssd] 400 gm TP BID #1 each 03/09/19 Unknown Rx Cyclobenzaprine [Flexeril] 10 mg PO Q8H PRN #15 tablet 08/29/19 Unknown Rx Ibuprofen [Motrin] 600 mg PO Q8H PRN #20 tablet 08/29/19 Unknown Rx predniSONE [Deltasone] 40 mg PO QDAY #10 tab 08/29/19 Unknown Rx Erythromycin [Erythromycin Ophth 1 applic OS QID 10 Days #1 tube 01/28/21 Unknown Rx Oint] Ondansetron [Zofran Odt] 4 mg PO Q8HR #8 tab.rapdis 01/28/21 Unknown Rx ED Physical Exam - General Limitations: No Limitations General appearance: alert, in no apparent distress - Head Head exam: Present: atraumatic, normocephalic - Eye Eye exam: Present: normal appearance, conjunctival injection, other (Conjuncti vitis injected with purulent mucus.) - ENT ENT exam: Present: normal exam, normal external ear exam - Neck Neck exam: Present: normal inspection, full ROM - Respiratory Respiratory exam: Absent: chest wall tenderness, accessory muscle use - Cardiovascular Cardiovascular Exam: Present: regular rate - GI/Abdominal GI/Abdominal exam: Present: soft. Absent: distended, tenderness - Rectal Rectal exam: Absent: heme (-) stool - Extremities Exam Extremities exam: Present: normal inspection, full ROM - Back Exam Back exam: Present: normal inspection, full ROM - Neurological Exam Neurological exam: Present: alert, oriented X3, normal gait - Psychiatric Psychiatric exam: Present: normal affect, normal mood - Skin Skin exam: Present: warm, dry, intact, normal color. Absent: rash ED Course Vital Signs 01/27/21 16:30 Temperature 98 F Pulse Rate 90 Respiratory 18 Rate Blood Pressure 116/92 O2 Sat by Pulse 97 Oximetry ED Medical Decision Making - Lab Data Result diagrams: 01/27/21 21:26 01/27/21 21:26 - Medical Decision Making Patient c/o 2 week hx of nausea and mild intermittent vomiting. She denies any UTI symptoms, diarrhea, abd pain, URI symptoms or cough. She states her LMC was 2 weeks ago. Patient does have a history of bipolar schizophrenia per medical records. Patient has been sitting here in the emergency room for 7 hours and has not given us any urine. Encourage patient to go to the bathroom now give us some urine so we are able to determine if she has any acute emergency that we need to concentrate on. All other blood serum labs are within normal limits. Patient has been here now 9 hours and still has not given us any urine. Patient was placed on IV with normal saline 1 L. Patient will be discharged home stable vital signs. She can follow-up with her primary care provider. Critical care attestation.: If time is entered above; I have spent that time in minutes in the direct care of this critically ill patient, excluding procedure time. ED Disposition Clinical Impression: Nausea and vomiting Qualifiers: Vomiting type: unspecified Vomiting Intractability: intractable Qualified Code(s): R11.2 - Nausea with vomiting, unspecified Conjunctivitis Qualifiers: Conjunctivitis type: acute Acute conjunctivitis type: unspecified Laterality: left Qualified Code(s): H10.32 - Unspecified acute conjunctivitis, left eye Disposition: TO HOME OR SELFCARE Is pt being admited?: No Does the pt Need Aspirin: No Condition: Stable Instructions: Nausea and Vomiting, Adult, [id number], Bacterial Conjunctivitis, Adult Additional Instructions: Please take Zofran as needed for nausea vomiting and follow-up with your primary care provider. Prescriptions: Erythromycin [Erythromycin Ophth Oint] 1 applic OS QID 10 Days #1 tube Ondansetron [Zofran Odt] 4 mg PO Q8HR #8 tab.[email or web address] Referrals: PRIMARY CARE, [Primary Care Provider] - 3-5 Days [facility] [Provider Group] - 3-5 Days
[2021-01-27] MEDS ORDERED: SODIUM CHLORIDE 0.9% 1000 ML 1,000 ML IV ONE (23:42)
== END 2021-01-28 02:30 | disposition home or self-care (01) ==
LOC: ED 16:27
DX: R11.2 Nausea with vomiting, unspecified (principal); H10.9 Unspecified conjunctivitis; F25.0 Schizoaffective disorder, bipolar type; Z79.899 Other long term (current) drug therapy
CPT/HCPCS: 36415; 80053; 85025; 96360; 99283; J7030

== ENCOUNTER 2021-04-27 15:24 | Emergency (ER) | payer MEDICAID | END 2021-04-27 16:33 | LOC: ED 15:24 | DX: Z00.8 Encounter for other general examination (principal); Z53.21 Procedure and treatment not carried out due to patient leaving prior to being seen by health care provider ==

== ENCOUNTER 2021-05-30 16:20 | Emergency (ER) | payer MEDICAID ==
[2021-05-30 16:51] VITALS: BP 120/83
== END 2021-05-30 23:50 | disposition left against medical advice (07) ==
LOC: ED 16:20
DX: R69 Illness, unspecified (principal); Z53.21 Procedure and treatment not carried out due to patient leaving prior to being seen by health care provider

== ENCOUNTER 2021-07-04 03:22 | Emergency (ER) | payer MEDICAID ==
--- NOTE | 2021-07-04 04:47 | Emergency Department Report ---
ED Psych HPI - General Chief Complaint: Psych Stated Complaint: SICK Time Seen by Provider: 07/04/21 04:30 Source: patient Mode of arrival: Ambulatory - History of Present Illness Initial Comments: Patient is a 31-year-old female presents emergency room for racing thoughts and a mental health evaluation. Patient states that she is being controlled by aliens. Patient states the aliens are inside of her. Patient states that she is looking for the liter aliens. Patient denies depression. Patient denies psychiatric medications. Patient denies suicidal and homicidal ideations. Patient denies hallucinations. Patient denies chest pain and shortness of breath. Patient denies physical pain. Patient states there is nothing wrong with her she just wants to help somebody going to her brain and get the aliens out. Patient denies recent travel. Patient denies recent international travel. Patient denies exposure to the novel coronavirus. Patient denies sick contacts. Patient denies fever and chills. Patient denies cough. Patient denies diarrhea. Patient denies coming in contact with anybody with symptoms of the novel coronavirus. Complaint: other -: Sudden Associated Psychiatric Symptoms: racing thoughts, delusions History of same: No Quality: constant Improves With: none Worsens With: none Context: not taking psychiatric - Related Data Previous Rx's Medication Instructions Recorded Last Taken Type Amoxicillin [Trimox CAP] 500 mg PO BID #20 capsule 03/09/19 Unknown Rx Silver Sulfadiazine [Ssd] 400 gm TP BID #1 each 03/09/19 Unknown Rx Cyclobenzaprine [Flexeril] 10 mg PO Q8H PRN #15 tablet 08/29/19 Unknown Rx Ibuprofen [Motrin] 600 mg PO Q8H PRN #20 tablet 08/29/19 Unknown Rx predniSONE [Deltasone] 40 mg PO QDAY #10 tab 08/29/19 Unknown Rx Erythromycin [Erythromycin Ophth 1 applic OS QID 10 Days #1 tube 01/28/21 Unknown Rx Oint] Ondansetron [Zofran Odt] 4 mg PO Q8HR #8 tab.rapdis 01/28/21 Unknown Rx Potassium Chloride [K-Dur] 20 meq PO DAILY #30 tablet 07/04/21 Unknown Rx Allergies Allergy/AdvReac Type Severity Reaction Status Date / Time No Known Allergies Allergy Verified 01/27/21 16:30 ED Review of Systems ROS: Stated complaint: SICK Other details as noted in HPI Constitutional: denies: chills, fever Eyes: denies: eye pain, eye discharge, vision change ENT: denies: ear pain, throat pain Respiratory: denies: cough, shortness of breath, wheezing Cardiovascular: denies: chest pain, palpitations Endocrine: no symptoms reported Gastrointestinal: denies: abdominal pain, nausea, diarrhea Genitourinary: denies: urgency, dysuria, discharge Musculoskeletal: denies: back pain, joint swelling, arthralgia Skin: denies: rash, lesions Neurological: denies: headache, weakness, paresthesias Psychiatric: as per HPI. denies: anxiety, depression, auditory hallucinations, visual hallucinations, homicidal thoughts, suicidal thoughts Hematological/Lymphatic: denies: easy bleeding, easy bruising ED Past Medical Hx - Past Medical History Previous Medical History?: Yes Hx Hypertension: No Hx Congestive Heart Failure: No Hx Diabetes: No Hx Deep Vein Thrombosis: No Hx Renal Disease: No Hx Sickle Cell Disease: No Hx Seizures: No Hx Psychiatric Treatment: Yes (BIPOLAR/ SCHIZOPHERNIC) Hx Asthma: No Hx COPD: No Hx HIV: No - Surgical History Past Surgical History?: Yes Additional Surgical History: c/s - Family History Family history: no significant - Social History Smoking Status: Never Smoker Substance Use Type: None - Medications Home Medications: Home Medications Medication Instructions Recorded Confirmed Last Taken Type Amoxicillin [Trimox CAP] 500 mg PO BID #20 capsule 03/09/19 Unknown Rx Silver Sulfadiazine [Ssd] 400 gm TP BID #1 each 03/09/19 Unknown Rx Cyclobenzaprine [Flexeril] 10 mg PO Q8H PRN #15 tablet 08/29/19 Unknown Rx Ibuprofen [Motrin] 600 mg PO Q8H PRN #20 tablet 08/29/19 Unknown Rx predniSONE [Deltasone] 40 mg PO QDAY #10 tab 08/29/19 Unknown Rx Erythromycin [Erythromycin Ophth 1 applic OS QID 10 Days #1 tube 01/28/21 Unknown Rx Oint] Ondansetron [Zofran Odt] 4 mg PO Q8HR #8 tab.rapdis 01/28/21 Unknown Rx Potassium Chloride [K-Dur] 20 meq PO DAILY #30 tablet 07/04/21 Unknown Rx ED Physical Exam - General Limitations: No Limitations General appearance: alert, in no apparent distress - Head Head exam: Present: atraumatic, normocephalic - Eye Eye exam: Present: normal appearance - ENT ENT exam: Present: mucous membranes moist - Neck Neck exam: Present: normal inspection - Respiratory Respiratory exam: Present: normal lung sounds bilaterally. Absent: respiratory distress - Cardiovascular Cardiovascular Exam: Present: regular rate, normal rhythm. Absent: systolic murmur, diastolic murmur, rubs, gallop - GI/Abdominal GI/Abdominal exam: Present: soft, normal bowel sounds - Extremities Exam Extremities exam: Present: normal inspection - Back Exam Back exam: Present: normal inspection - Neurological Exam Neurological exam: Present: alert, oriented X3 - Psychiatric Psychiatric exam: Present: flat affect - Expanded Psychiatric Exam Expanded Focused psych exam: Present: pressured speech, delusional, paranoid, flight of ideas, loose associations - Skin Skin exam: Present: warm, dry, intact, normal color. Absent: rash ED Course Vital Signs 07/04/21 07/04/21 04:12 04:17 Temperature 98.4 F Pulse Rate 73 Respiratory 16 Rate Blood Pressure 180/142 118/76 [Right] O2 Sat by Pulse 100 Oximetry - Reevaluation(s) Reevaluation #1: Patient placed on a ER hold. 07/04/21 04:47 Reevaluation #2: Patient is medically cleared. Patient's only finding is low potassium. Patient's labs unremarkable. Patient will remain in the ER as an ER hold until the patient is cleared by our psychiatry team. Patient's final disposition will come from our psychiatry team. Patient to be given oral potassium. 07/04/21 05:48 ED Medical Decision Making - Lab Data Result diagrams: 07/04/21 04:24 07/04/21 04:24 - Medical Decision Making Patient is a 31-year-old female who presents emergency department of evaluation found to be in acute psychosis. Patient had multiple psychotic features. Patient placed on a ER hold. Patient had labs done which were essentially unremarkable except for hypokalemia. Patient given oral potassium. Patient is medically cleared. Patient will remain in the ER as an ER hold and until the patient is cleared by psychiatry team. Patient's final disposition will come from our psychiatry team. - Differential Diagnosis Medical clearance, acute psychosis, Critical care attestation.: If time is entered above; I have spent that time in minutes in the direct care of this critically ill patient, excluding procedure time. ED Disposition Clinical Impression: Acute psychosis, Hypokalemia Is pt being admited?: No Does the pt Need Aspirin: No Condition: Stable Instructions: Hypokalemia, Potassium Content of Foods Additional Instructions: Patient to take meds as directed. Patient to return to the ER if condition worsens, changes or new symptoms arise. Prescriptions: Potassium Chloride [K-Dur] 20 meq PO DAILY #30 tablet Referrals: PRIMARY CARE, [Primary Care Provider] - 3-5 Days Time of Disposition: 05:48
[2021-07-04 04:53] LABS: Hematocrit 29.7 % (30.3-42.9); Hemoglobin 10.1 gm/dl (10.1-14.3); Mean Corpuscular HGB Conc 34 % (30-34); Mean Corpuscular Volume 95 fl (79-97); Platelet Count 232 K/mm3 (140-440); Red Blood Count 3.13 M/mm3 (3.65-5.03); Red Cell Distribution Width 15.2 % (13.2-15.2)
[2021-07-04 05:06] LABS: Blood Urea Nitrogen 10 mg/dL (7-17); Calcium 9.6 mg/dL (8.4-10.2); Hemolysis Index 3
[2021-07-04 05:07] LABS: BUN/Creatinine Ratio 17
[2021-07-04] MEDS ORDERED: POTASSIUM CHLORIDE ER 20 MEQ TAB PO ONE (05:30)
[2021-07-04 05:47] LABS: Total Cells Counted 100
[2021-07-04 05:48] LABS: Ovalocytes 1+; Platelet Estimate Consistent w Auto; Toxic Vacuolation 1+
--- NOTE | 2021-07-04 09:12 | Consultation ---
History of Present Illness - Reason for Consult Consult date: 07/04/21 Reason for consult: pspychsis - History of Present Psychiatric Illness Per ER Note: Patient is a 31-year-old female presents emergency room for racing thoughts and a mental health evaluation. Patient states that she is being controlled by aliens. Patient states the aliens are inside of her. Patient states that she is looking for the liter aliens. Patient denies depression. Patient denies psychiatric medications. Patient denies suicidal and homicidal ideations. Patient denies hallucinations. Patient denies chest pain and shortness of breath. Patient denies physical pain. Patient states there is nothing wrong with her she just wants to help somebody going to her brain and get the aliens out. The patient was seen today. She appears anxious. She is responding to internal stimuli. The patient was talking loudly while I was speaking with another patient. When I attempted to speak with her she would not respond. She continuously flicked her ear and rocked back and forth. She would not even tell me her name. Psych History Unable to obtain REVIEW OF SYSTEMS Unable to assess MENTAL STATUS EXAMINATION General Appearance and Behavior: Age appropriate, good hygiene, wearing appropriate clothes. Cooperation: uncooperative Psychomotor Behavior: guarded Mood: Affect and affective range: Restricted Thought Process: Thought Content: responding to internal stimuli Speech: Normal volume, Regular rate and rhythm, Suicidal Ideation: Homicidal Ideation: Hallucinations: yes Delusions: Impulse Control: Questionable Insight and Judgment: Limited, Poor judgment Memory: Normal Attention:Distractible Orientation: alert and oriented Assessment and Plan (1) Acute Psychosis Current Visit: Yes Status: Acute Treatment Plan 1013 Start Risperidone 0.25mg po BID Start Vistaril 50mg po BID The patient to comply with previously prescribed medications Risks, benefits and alternatives of medications discussed with the patient, questions answered and consent obtained from patient. PSYCHOTHERAPY: Supportive psychotherapy provided MEDICAL: Per primary team DELIRIUM PRECAUTIONS: Please re-orient patient frequently, keep lights on during the day, and minimize benzodiazepines and opiates as these medications could worsen patient's confusion. INFANTRY OPERATIONS SPECIALIST: Defer to primary DISPOSITION: Recommend acute inpatient psychiatric hospitalization at this time. FOLLOW-UP: Will follow. Case staffed with Dr. Prater Please contact with any questions and/or concerns. Thank you for the consult. Medications and Allergies Allergies Allergy/AdvReac Type Severity Reaction Status Date / Time No Known Allergies Allergy Verified 01/27/21 16:30 Home Medications Medication Instructions Recorded Confirmed Last Taken Type Amoxicillin [Trimox CAP] 500 mg PO BID #20 capsule 03/09/19 Unknown Rx Silver Sulfadiazine [Ssd] 400 gm TP BID #1 each 03/09/19 Unknown Rx Cyclobenzaprine [Flexeril] 10 mg PO Q8H PRN #15 tablet 08/29/19 Unknown Rx Ibuprofen [Motrin] 600 mg PO Q8H PRN #20 tablet 08/29/19 Unknown Rx predniSONE [Deltasone] 40 mg PO QDAY #10 tab 08/29/19 Unknown Rx Erythromycin [Erythromycin Ophth 1 applic OS QID 10 Days #1 tube 01/28/21 Unknown Rx Oint] Ondansetron [Zofran Odt] 4 mg PO Q8HR #8 tab.rapdis 01/28/21 Unknown Rx Potassium Chloride [K-Dur] 20 meq PO DAILY #30 tablet 07/04/21 Unknown Rx Mental Status Exam - Vital signs Last Vital Signs Temp 98.4 F 07/04/21 04:12 Pulse 73 07/04/21 04:12 Resp 16 07/04/21 04:12 BP 118/76 07/04/21 04:17 Pulse Ox 100 07/04/21 04:12 Results Result Diagrams: 07/04/21 04:24 07/04/21 04:24 Abnormal lab results 07/04/21 07/04/21 07/04/21 Range/Units 04:24 04:24 04:24 WBC (4.5-11.0) K/mm3 RBC (3.65-5.03) M/mm3 Hct (30.3-42.9) % Lymphocytes % (Manual) (13.4-35.0) % Eosinophils % (Manual) (0.0-4.3) % Potassium 2.8 L* (3.6-5.0) mmol/L Carbon Dioxide 31 H (22-30) mmol/L Salicylates < 0.3 L (2.8-20.0) mg/dL Acetaminophen 5.0 L (10.0-30.0) ug/mL 07/04/21 Range/Units 04:24 WBC 4.4 L (4.5-11.0) K/mm3 RBC 3.13 L (3.65-5.03) M/mm3 Hct 29.7 L (30.3-42.9) % Lymphocytes % (Manual) 37.0 H (13.4-35.0) % Eosinophils % (Manual) 6.0 H (0.0-4.3) % Potassium (3.6-5.0) mmol/L Carbon Dioxide (22-30) mmol/L Salicylates (2.8-20.0) mg/dL Acetaminophen (10.0-30.0) ug/mL All other labs normal.
--- NOTE | 2021-07-04 10:35 | Event Note ---
No acute needs at this time. I have ordered scheduled potassium twice daily to address hypokalemia 2.8. Vital signs stable. Most recent blood pressure normal. Patient is medically clear for psychiatric care. Awaiting treatment recommendations by psychiatry team.
[2021-07-04] MEDS: POTASSIUM CHLORIDE ER 20 MEQ TAB PO SCH (22:42)
[2021-07-04] MEDS: risperiDONE 0.25 MG TAB PO SCH (22:42)
[2021-07-05 08:16] VITALS: BP 105/62
[2021-07-05 09:39] LABS: Amphetamine Screen,Urine Negative; Benzodiazepines Screen,Urine Negative; Cocaine Screen,Urine Negative; Methadone Screen,Urine Negative; Opiate Screen,Urine Negative
[2021-07-05 09:43] LABS: Bacteria,Urine 1+ /HPF (Negative); Bilirubin,Urine NEG (Negative); Blood,Urine NEG (Negative); Color,Urine Yellow (Yellow); Mucus,Urine 3+ /HPF; Urobilinogen,Urine < 2.0 mg/dL (<2.0)
[2021-07-05] MEDS ORDERED: LORazepam 2 MG/ML VIAL ONE (10:14)
[2021-07-05] MEDS ORDERED: LORazepam 2 MG/ML VIAL IM ONE (10:20)
[2021-07-05 10:26] LABS: Cannabinoid Screen,Urine Positive
--- NOTE | 2021-07-05 10:41 | Progress Note ---
Subjective Date of service: 07/05/21 Principal diagnosis: psychosis Subjective Comment: The patient was seen today. She is irritable and acutely psychotic. She is paranoid and responding to internal stimuli. She is sitting with the linen partially over her head. I call her name and lightly touch her shoulder. She replies "don't touch me." The patient tells me she forgot her name. She says "I feel stressed." She says "yesterday I was buried by people." She says "people were holding me against my will." The patient says, "I hear people saying things." She denies SI/HI. REVIEW OF SYSTEMS Unable to assess MENTAL STATUS EXAMINATION General Appearance and Behavior: Age appropriate, good hygiene, wearing appropriate clothes. Cooperation: uncooperative Psychomotor Behavior: guarded, irritable Mood: Stressed Affect and affective range: Restricted Thought Process: illogical Thought Content: responding to internal stimuli Speech: Normal volume, Regular rate and rhythm, Suicidal Ideation: Denies Homicidal Ideation: Denies Hallucinations: yes Delusions: paranoid Impulse Control: Limited Insight and Judgment: Limited, Poor judgment Memory: Normal Attention: Distractible Orientation: alert and oriented Assessment and Plan (1) Acute Psychosis Current Visit: Yes Status: Acute Treatment Plan 1013 Increase Risperidone 0.5mg po BID Start Depakote DR 125mg po BID Continue Vistaril 50mg po BID The patient to comply with previously prescribed medications Risks, benefits and alternatives of medications discussed with the patient, questions answered and consent obtained from patient. PSYCHOTHERAPY: Supportive psychotherapy provided MEDICAL: Per primary team DELIRIUM PRECAUTIONS: Please re-orient patient frequently, keep lights on during the day, and minimize benzodiazepines and opiates as these medications could worsen patient's confusion. GLAZE GRINDER: Defer to primary DISPOSITION: Recommend acute inpatient psychiatric hospitalization at this time. FOLLOW-UP: Will follow. Case staffed with Dr. Prater Please contact with any questions and/or concerns. Thank you for the consult. Medications and Allergies Allergies Allergy/AdvReac Type Severity Reaction Status Date / Time No Known Allergies Allergy Verified 01/27/21 16:30 Home Medications Medication Instructions Recorded Confirmed Last Taken Type Amoxicillin [Trimox CAP] 500 mg PO BID #20 capsule 03/09/19 Unknown Rx Silver Sulfadiazine [Ssd] 400 gm TP BID #1 each 03/09/19 Unknown Rx Cyclobenzaprine [Flexeril] 10 mg PO Q8H PRN #15 tablet 08/29/19 Unknown Rx Ibuprofen [Motrin] 600 mg PO Q8H PRN #20 tablet 08/29/19 Unknown Rx predniSONE [Deltasone] 40 mg PO QDAY #10 tab 08/29/19 Unknown Rx Erythromycin [Erythromycin Ophth 1 applic OS QID 10 Days #1 tube 01/28/21 Unknown Rx Oint] Ondansetron [Zofran Odt] 4 mg PO Q8HR #8 tab.rapdis 01/28/21 Unknown Rx Potassium Chloride [K-Dur] 20 meq PO DAILY #30 tablet 07/04/21 Unknown Rx Active Meds: Active Medications Hydroxyzine Pamoate (Hydroxyzine Pamoate 50 Mg Cap) 50 mg PO BID [facility] Last Admin: 07/04/21 22:42 Dose: 50 mg Documented by: Potassium Chloride (Potassium Chloride Er 20 Meq Tab) 40 meq PO BID [facility] Last Admin: 07/04/21 22:42 Dose: 40 meq Documented by: Risperidone (Risperidone 0.25 Mg Tab) 0.25 mg PO BID [facility] Last Admin: 07/04/21 22:42 Dose: 0.25 mg Documented by: Results - Results Labs/Vitals: Laboratory Last Values WBC 4.4 K/mm3 (4.5-11.0) L 07/04/21 04:24 RBC 3.13 M/mm3 (3.65-5.03) L 07/04/21 04:24 Hgb 10.1 gm/dl (10.1-14.3) 07/04/21 04:24 Hct 29.7 % (30.3-42.9) L 07/04/21 04:24 MCV 95 fl (79-97) 07/04/21 04:24 MCH 32 pg (28-32) 07/04/21 04:24 MCHC 34 % (30-34) 07/04/21 04:24 RDW 15.2 % (13.2-15.2) 07/04/21 04:24 Plt Count 232 K/mm3 (140-440) 07/04/21 04:24 Add Manual Diff Complete 07/04/21 04:24 Total Counted 100 07/04/21 04:24 Seg Neutrophils % Plastic Boat Patcher 07/04/21 04:24 Seg Neuts % (Manual) 50.0 % (40.0-70.0) 07/04/21 04:24 Lymphocytes % (Manual) 37.0 % (13.4-35.0) H 07/04/21 04:24 Monocytes % (Manual) 6.0 % (0.0-7.3) 07/04/21 04:24 Eosinophils % (Manual) 6.0 % (0.0-4.3) H 07/04/21 04:24 Myelocytes % 1.0 % 07/04/21 04:24 Nucleated RBC % Not Reportable 07/04/21 04:24 Seg Neutrophils # Man 2.2 K/mm3 (1.8-7.7) 07/04/21 04:24 Band Neutrophils # 0.0 K/mm3 07/04/21 04:24 Lymphocytes # (Manual) 1.6 K/mm3 (1.2-5.4) 07/04/21 04:24 Abs React Lymphs (Man) 0.0 K/mm3 07/04/21 04:24 Monocytes # (Manual) 0.3 K/mm3 (0.0-0.8) 07/04/21 04:24 Eosinophils # (Manual) 0.3 K/mm3 (0.0-0.4) 07/04/21 04:24 Basophils # (Manual) 0.0 K/mm3 (0.0-0.1) 07/04/21 04:24 Metamyelocytes # 0.0 K/mm3 07/04/21 04:24 Myelocytes # 0.0 K/mm3 07/04/21 04:24 Promyelocytes # 0.0 K/mm3 07/04/21 04:24 Blast Cells # 0.0 K/mm3 07/04/21 04:24 WBC Morphology Not Reportable 07/04/21 04:24 Hypersegmented Neuts Not Reportable 07/04/21 04:24 Hyposegmented Neuts Not Reportable 07/04/21 04:24 Hypogranular Neuts Not Reportable 07/04/21 04:24 Smudge Cells Not Reportable 07/04/21 04:24 Toxic Granulation Not Reportable 07/04/21 04:24 Toxic Vacuolation 1+ 07/04/21 04:24 Dohle Bodies Not Reportable 07/04/21 04:24 Pelger-Huet Anomaly Not Reportable 07/04/21 04:24 Grover Rods Not Reportable 07/04/21 04:24 Platelet Estimate Consistent w auto 07/04/21 04:24 Clumped Platelets Not Reportable 07/04/21 04:24 Plt Clumps, EDTA Not Reportable 07/04/21 04:24 Large Platelets Not Reportable 07/04/21 04:24 Giant Platelets Not Reportable 07/04/21 04:24 Platelet Satelliting Not Reportable 07/04/21 04:24 Plt Morphology Comment Not Reportable 07/04/21 04:24 RBC Morphology Not Reportable 07/04/21 04:24 Dimorphic RBCs Not Reportable 07/04/21 04:24 Polychromasia Not Reportable 07/04/21 04:24 Hypochromasia Not Reportable 07/04/21 04:24 Poikilocytosis Not Reportable 07/04/21 04:24 Anisocytosis Not Reportable 07/04/21 04:24 Microcytosis Not Reportable 07/04/21 04:24 Macrocytosis Not Reportable 07/04/21 04:24 Spherocytes Not Reportable 07/04/21 04:24 Pappenheimer Bodies Not Reportable 07/04/21 04:24 Sickle Cells Not Reportable 07/04/21 04:24 Target Cells Not Reportable 07/04/21 04:24 Tear Drop Cells Not Reportable 07/04/21 04:24 Ovalocytes 1+ 07/04/21 04:24 Helmet Cells Not Reportable 07/04/21 04:24 [place] Bodies Not Reportable 07/04/21 04:24 [place] Rings Not Reportable 07/04/21 04:24 Malik Cells Not Reportable 07/04/21 04:24 Bite Cells Not Reportable 07/04/21 04:24 Crenated Cell Not Reportable 07/04/21 04:24 Elliptocytes Not Reportable 07/04/21 04:24 Acanthocytes (Spur) Not Reportable 07/04/21 04:24 Rouleaux Not Reportable 07/04/21 04:24 Hemoglobin C Crystals Not Reportable 07/04/21 04:24 Schistocytes Not Reportable 07/04/21 04:24 Malaria parasites Not Reportable 07/04/21 04:24 Stephon Bodies Not Reportable 07/04/21 04:24 Hem Pathologist Commnt No 07/04/21 04:24 Sodium 145 mmol/L (137-145) 07/04/21 04:24 Potassium 2.8 mmol/L (3.6-5.0) L* 07/04/21 04:24 Chloride 104.7 mmol/L (98-107) 07/04/21 04:24 Carbon Dioxide 31 mmol/L (22-30) H 07/04/21 04:24 Anion Gap 12 mmol/L 07/04/21 04:24 BUN 10 mg/dL (7-17) 07/04/21 04:24 Creatinine 0.6 mg/dL (0.6-1.2) 07/04/21 04:24 Estimated GFR > 60 ml/min 07/04/21 04:24 BUN/Creatinine Ratio 17 % 07/04/21 04:24 Glucose 90 mg/dL (65-100) 07/04/21 04:24 Calcium 9.6 mg/dL (8.4-10.2) 07/04/21 04:24 HCG, Qual Negative (Negative) 07/04/21 04:29 Urine Color Yellow (Yellow) 07/05/21 Unknown Urine Turbidity Cloudy (Clear) 07/05/21 Unknown Urine pH 6.0 (5.0-7.0) 07/05/21 Unknown Ur Specific [place] 1.027 (1.003-1.030) 07/05/21 Unknown Urine Protein 100 mg/dl mg/dL (Negative) 07/05/21 Unknown Urine Glucose (UA) Neg mg/dL (Negative) 07/05/21 Unknown Urine Ketones 80 mg/dL (Negative) 07/05/21 Unknown Urine Blood Neg (Negative) 07/05/21 Unknown Urine Nitrite Neg (Negative) 07/05/21 Unknown Urine Bilirubin Neg (Negative) 07/05/21 Unknown Urine Urobilinogen < 2.0 mg/dL (<2.0) 07/05/21 Unknown Ur Leukocyte Esterase Tr (Negative) 07/05/21 Unknown Urine WBC (Auto) 7.0 /HPF (0.0-6.0) H 07/05/21 Unknown Urine RBC (Auto) 4.0 /HPF (0.0-6.0) 07/05/21 Unknown U Epithel Cells (Auto) 18.0 /HPF (0-13.0) H 07/05/21 Unknown Urine Bacteria (Auto) 1+ /HPF (Negative) 07/05/21 Unknown Urine Mucus 3+ /HPF 07/05/21 Unknown Salicylates < 0.3 mg/dL (2.8-20.0) L 07/04/21 04:24 Urine Opiates Screen Negative 07/05/21 Unknown Urine Methadone Screen Negative 07/05/21 Unknown Acetaminophen 5.0 ug/mL (10.0-30.0) L 07/04/21 04:24 Ur Barbiturates Screen Negative 07/05/21 Unknown Ur Phencyclidine Scrn Negative 07/05/21 Unknown Ur Amphetamines Screen Negative 07/05/21 Unknown U Benzodiazepines Scrn Negative 07/05/21 Unknown Urine Cocaine Screen Negative 07/05/21 Unknown U Marijuana (THC) Screen Positive 07/05/21 Unknown Drugs of Abuse Note Disclamer 07/05/21 Unknown Plasma/Serum Alcohol 0.03 % (0-0.07) 07/04/21 04:24 Last Vital Signs Temp 97.9 F 07/05/21 08:15 Pulse 67 07/05/21 08:15 Resp 20 07/05/21 08:15 BP 105/62 07/05/21 08:15 Pulse Ox 97 07/05/21 10:28
[2021-07-05] MEDS ORDERED: DIVALPROEX DR 125 MG TAB PO SCH (11:00)
[2021-07-05] MEDS ORDERED: risperiDONE 0.25 MG TAB PO SCH (11:00)
[2021-07-05] MEDS: risperiDONE 0.25 MG TAB PO SCH (11:18)
[2021-07-05] MEDS: POTASSIUM CHLORIDE ER 20 MEQ TAB PO SCH (11:18)
[2021-07-05] MEDS ORDERED: LORazepam 2 MG/ML VIAL IM PRN (11:47)
--- NOTE | 2021-07-05 12:19 | Event Note ---
Date: 07/05/21 S: Patient reportedly agitated overnight, spitting on staff. No other events reported O: Vital Signs - 24 hr 07/04/21 07/05/21 07/05/21 20:14 01:14 08:15 Temperature 98.1 F 98.0 F 97.9 F Pulse Rate 68 76 67 Respiratory 16 16 20 Rate Blood Pressure 124/81 117/69 105/62 [Right] O2 Sat by Pulse 99 100 97 Oximetry 07/05/21 10:28 Temperature Pulse Rate Respiratory Rate Blood Pressure [Right] O2 Sat by Pulse 97 Oximetry A: Acute psychosis P: 1013/awaiting inpatient psych. PRN Ativan ordered
== END 2021-07-05 19:28 ==
LOC: ED 03:22
DX: F23 Brief psychotic disorder (principal); E87.6 Hypokalemia; Z20.822 Contact with and (suspected) exposure to COVID-19
CPT/HCPCS: 36415; 80048; 80307; 81001; 84132; 84703; 85007; 85025; 96372; 99285; J2060; Q0177; U0003; 80320; G0480